=== PATIENT | female | born 1995 | race African-American/Black ===

== ENCOUNTER 2017-09-20 15:46 | Emergency (ER) | payer MEDICAID, OTHER ==
[~2017-09-20] VITALS: Ht 162.6 cm; Wt 54.4 kg
[2017-09-20 16:00] VITALS: BP 111/79
[2017-09-20] MEDS ORDERED: TETANUS-DIPTH-ACEL PERTUSSIS 0.5ML SYRG IM ONE (17:15)
[2017-09-20] MEDS ORDERED: NEOMYCIN-BACITRACIN-POLYM UNITDOSE PKG TOP OINT TOP ONE (17:15)
== END 2017-09-20 17:57 | disposition home or self-care (01) ==
LOC: ER 15:46 → EDBD 15:46 → ER 17:57
DX: T22.212A Burn of second degree of left forearm, initial encounter (principal); T22.222A Burn of second degree of left elbow, initial encounter; T21.24XA Burn of second degree of lower back, initial encounter; X12.XXXA Contact with other hot fluids, initial encounter; Y93.89 Activity, other specified; Y99.0 Civilian activity done for income or pay; Y92.511 Restaurant or cafe as the place of occurrence of the external cause
CPT/HCPCS: 90715

== ENCOUNTER 2017-12-18 16:50 | Emergency (ER) | payer MEDICAID ==
[~2017-12-18] VITALS: Ht 165.1 cm; Wt 45.4 kg
[2017-12-18] MEDS ORDERED: SODIUM CHLORIDE 0.9% 1,000 ML IVB ONE (17:24)
[2017-12-18 17:25] LABS: Urine Bacteria NONE SEEN /hpf (None Seen); Urine Blood Negative /uL (Negative); Urine Mucus FEW (None Seen); Urine Specific Gravity 1.027 (1.001-1.035); Urine WBC 27 /hpf (0 - 5)
[2017-12-18 17:29] LABS: Basophils # (auto) 0.1 uL; Basophils % (auto) 0.7 % (0.0-2.0); Eosinophils # (auto) 0.1 uL; Eosinophils % (auto) 0.9 % (0.0-7.0); Hematocrit 37.3 % (36.0-46.0); Lymphocytes # (auto) 1.6 uL; Lymphocytes % (auto) 18.8 % (10.0-50.0); Mean Corpuscular Hgb Conc. 34.9 g/dL (32.0-36.0); Mean Corpuscular Volume 91.6 fL (80.0-100.0); Monocytes # (auto) 0.6 uL; Monocytes % (auto) 6.9 % (0.0-12.0); Neutrophils # (auto) 6.4 uL; Neutrophils % (auto) 72.7 % (37.0-80.0); Nucleated Red Blood Cells % 0.1 %; Platelet Count (auto) 206 10^3/uL (140-450); Red Blood Cells 4.08 10^6/uL (4.0-5.20); Red Cell Distribution Width 14.1 % (11.8-14.3); White Blood Cell 8.8 10^3/uL (4.4-10.8)
[2017-12-18 18:10] LABS: Albumin 3.4 g/dL (3.4-5.0); Calcium 8.3 mg/dL (8.5-10.1); Potassium 4.2 mmol/L (3.5-5.1)
[2017-12-18 18:23] LABS: Bilirubin, Total 0.7 mg/dL (0.2-1.0); Total Protein 7.4 g/dL (6.4-8.2)
[2017-12-18 20:10] VITALS: BP 111/70
== END 2017-12-18 20:20 | disposition home or self-care (01) ==
LOC: ER 16:58
DX: O23.42 Unspecified infection of urinary tract in pregnancy, second trimester (principal); O21.8 Other vomiting complicating pregnancy; Z3A.14 14 weeks gestation of pregnancy
CPT/HCPCS: 36415; 76805; 80053; 81001; 84702; 85025; 94761; 96360; 99285; J7030

== ENCOUNTER 2018-05-01 18:24 | Observation (INO) | payer MEDICAID ==
[2018-05-01] MEDS ORDERED: TERBUTALINE SULFATE 1 MG/ML 1ML VIAL SC ONE (19:07)
== END 2018-05-01 20:57 | disposition home or self-care (01) | DRG 566 ==
LOC: LDRP 18:24
PROVIDERS: ADMIT Specialist; ATTEND Specialist
DX: O21.2 Late vomiting of pregnancy (principal); O26.893 Other specified pregnancy related conditions, third trimester; R10.9 Unspecified abdominal pain; Z3A.34 34 weeks gestation of pregnancy
CPT/HCPCS: 59025; 81002; 94760; G0378; J3105; 96365; 96366; 96372

== ENCOUNTER 2018-05-11 12:00 | Observation (INO) | payer MEDICAID ==
[~2018-05-11] VITALS: Ht 165.1 cm; Wt 54.4 kg
[2018-05-11] MEDS ORDERED: LACTATED RINGER'S 1,000 ML IV SCH (12:41)
[2018-05-11] MEDS ORDERED: LACTATED RINGER'S 1,000 ML IV ONE (12:41)
[2018-05-11] MEDS: TERBUTALINE SULFATE 1 MG/ML 1ML VIAL SC SCH ×2 (13:00→13:20)
[2018-05-11] MEDS ORDERED: ONDANSETRON HCL 4 MG/2 ML VIAL IV ONE (13:15)
[2018-05-11 14:43] LABS: Urine Bacteria NONE SEEN /hpf (None Seen); Urine Blood Negative /uL (Negative); Urine Mucus FEW (None Seen); Urine Specific Gravity 1.036 (1.001-1.035); Urine WBC 1 /hpf (0 - 5)
== END 2018-05-11 15:00 | disposition home or self-care (01) | DRG 566 ==
LOC: LDRP 12:00
PROVIDERS: ADMIT Specialist; ATTEND Specialist
DX: O21.1 Hyperemesis gravidarum with metabolic disturbance (principal); E86.0 Dehydration; O21.2 Late vomiting of pregnancy; O62.9 Abnormality of forces of labor, unspecified; O26.893 Other specified pregnancy related conditions, third trimester; R42 Dizziness and giddiness; Z3A.35 35 weeks gestation of pregnancy
CPT/HCPCS: 59025; 81001; 81002; 96360; 96361; 96372; G0378; J3105; 96365; 96366

== ENCOUNTER 2018-06-01 20:41 | Observation (INO) | payer MEDICAID ==
[2018-06-01] MEDS ORDERED: PREN-96 PO (23:15)
[2018-06-01] MEDS ORDERED: ACYC400T PO (23:15)
== END 2018-06-01 22:34 | disposition home or self-care (01) | DRG 566 ==
LOC: LDRP 20:41
PROVIDERS: ADMIT Specialist; ATTEND Specialist
DX: O26.893 Other specified pregnancy related conditions, third trimester (principal); N89.8 Other specified noninflammatory disorders of vagina; Z3A.38 38 weeks gestation of pregnancy
CPT/HCPCS: 59025; 81002; G0378

== ENCOUNTER 2019-03-11 18:01 | Observation (INO) | payer MEDICAID ==
[~2019-03-11 18:01] MED LIST: ACYC-43 PO; PREN-96 PO
[2019-03-11] MEDS ORDERED: NIF10C GT (19:10)
== END 2019-03-11 19:05 | disposition home or self-care (01) | DRG 563 ==
LOC: LDRP 18:01
PROVIDERS: ADMIT Obstetrics & Gynecology; ATTEND Obstetrics & Gynecology
DX: O60.02 Preterm labor without delivery, second trimester (principal); Z3A.26 26 weeks gestation of pregnancy
CPT/HCPCS: 59025; 81002; G0378

== ENCOUNTER 2019-03-17 09:30 | Observation (INO) | payer MEDICAID ==
[~2019-03-17 09:30] MED LIST changes: -ACYC-43 PO; +NIF10C GT
== END 2019-03-17 10:20 | disposition home or self-care (01) | DRG 563 ==
LOC: LDRP 09:30
PROVIDERS: ADMIT Obstetrics & Gynecology; ATTEND Obstetrics & Gynecology
DX: O60.02 Preterm labor without delivery, second trimester (principal); Z3A.27 27 weeks gestation of pregnancy
CPT/HCPCS: 59025; 81002; G0378

== ENCOUNTER 2019-04-21 10:30 | Observation (INO) | payer MEDICAID | END 2019-04-21 11:15 | disposition home or self-care (01) | DRG 563 | LOC: LDRP 10:30 | PROVIDERS: ADMIT Specialist; ATTEND Specialist | DX: O60.03 Preterm labor without delivery, third trimester (principal); Z3A.32 32 weeks gestation of pregnancy | CPT/HCPCS: 59025; 81002; G0378 ==

== ENCOUNTER 2019-04-28 08:15 | Observation (INO) | payer MEDICAID | END 2019-04-28 08:55 | disposition home or self-care (01) | DRG 563 | LOC: LDRP 08:15 | PROVIDERS: ADMIT Obstetrics & Gynecology; ATTEND Obstetrics & Gynecology | DX: O60.03 Preterm labor without delivery, third trimester (principal); Z3A.33 33 weeks gestation of pregnancy | CPT/HCPCS: 59025; G0378 ==

== ENCOUNTER 2019-05-05 08:20 | Observation (INO) | payer MEDICAID | END 2019-05-05 12:00 | disposition home or self-care (01) | DRG 563 | LOC: LDRP 08:20 | PROVIDERS: ADMIT Specialist; ATTEND Specialist | DX: O60.03 Preterm labor without delivery, third trimester (principal); Z3A.34 34 weeks gestation of pregnancy | CPT/HCPCS: 59025; 81002; 96365; G0378 ==

== ENCOUNTER 2019-05-12 08:58 | Observation (INO) | payer MEDICAID ==
[2019-05-12] MEDS: TERBUTALINE SULFATE 1 MG/ML 1ML VIAL SC ONE (09:48)
--- NOTE | 2019-05-12 09:48 | NUR ---
TERB MEDICATION ADMIN 1MG SUBQ. NOTIFIED.
[2019-05-12] MEDS ORDERED: BETAMETHASONE ACET (6MG/ML) 5ML VIAL IM SCH (10:00)
== END 2019-05-12 11:45 | disposition home or self-care (01) | DRG 566 ==
LOC: LDRP 08:58
PROVIDERS: ADMIT Obstetrics & Gynecology; ATTEND Obstetrics & Gynecology
DX: O21.2 Late vomiting of pregnancy (principal); O26.893 Other specified pregnancy related conditions, third trimester; M54.9 Dorsalgia, unspecified; N89.8 Other specified noninflammatory disorders of vagina; Z3A.35 35 weeks gestation of pregnancy
CPT/HCPCS: 59025; 81002; 96372; G0378; J0702; J3105

== ENCOUNTER 2019-05-13 16:22 | Observation (INO) | payer MEDICAID ==
[~2019-05-13] VITALS: Ht 1 cm; Wt 0.5 kg
[2019-05-13] MEDS ORDERED: BETAMETHASONE ACET (6MG/ML) 5ML VIAL IM ONE (16:30)
[2019-05-13] MEDS ORDERED: TERBUTALINE SULFATE 1 MG/ML 1ML VIAL SC ONE (17:35)
== END 2019-05-13 17:55 | disposition home or self-care (01) | DRG 563 ==
LOC: LDRP 16:22
PROVIDERS: ADMIT Obstetrics & Gynecology; ATTEND Obstetrics & Gynecology
DX: O60.00 Preterm labor without delivery, unspecified trimester (principal); Z3A.00 Weeks of gestation of pregnancy not specified
CPT/HCPCS: 59025; 81002; 96372; G0378; J0702

== ENCOUNTER 2019-05-19 08:55 | Observation (INO) | payer MEDICAID | END 2019-05-19 09:42 | disposition home or self-care (01) | DRG 563 | LOC: LDRP 08:55 | PROVIDERS: ADMIT Obstetrics & Gynecology; ATTEND Obstetrics & Gynecology | DX: O60.03 Preterm labor without delivery, third trimester (principal); Z3A.36 36 weeks gestation of pregnancy | CPT/HCPCS: 59025; 81002; G0378 ==

== ENCOUNTER 2019-05-31 20:43 | Observation (INO) | payer MEDICAID | END 2019-05-31 21:57 | disposition home or self-care (01) | DRG 566 | LOC: LDRP 20:43 | PROVIDERS: ADMIT Obstetrics & Gynecology; ATTEND Obstetrics & Gynecology | DX: O26.893 Other specified pregnancy related conditions, third trimester (principal); R10.2 Pelvic and perineal pain; Z3A.37 37 weeks gestation of pregnancy | CPT/HCPCS: 59025; 81002; G0378 ==

== ENCOUNTER 2019-06-08 20:08 | Observation (INO) | payer MEDICAID ==
[2019-06-08] MEDS ORDERED: ACETAMINOPHEN/CODEINE#3 (300/30mg) TAB PO ONE (20:45)
== END 2019-06-08 21:18 | disposition left against medical advice (07) | DRG 566 ==
LOC: LDRP 20:08
PROVIDERS: ADMIT Obstetrics & Gynecology; ATTEND Obstetrics & Gynecology
DX: O99.89 Other specified diseases and conditions complicating pregnancy, childbirth and the puerperium (principal); M54.5 Low back pain; Z3A.38 38 weeks gestation of pregnancy
CPT/HCPCS: 59025; 81002; G0378

== ENCOUNTER 2020-03-03 16:36 | Emergency (ER) | payer MEDICAID ==
[~2020-03-03] VITALS: Ht 170.2 cm; Wt 59.0 kg
[2020-03-03] MEDS ORDERED: ACETAMINOPHEN 325 MG TAB PO ONE (16:45)
[2020-03-03 17:00] VITALS: BP 110/62
== END 2020-03-03 20:34 | disposition home or self-care (01) ==
LOC: EDBD 16:36 → ER 16:36
DX: O9A.213 Injury, poisoning and certain other consequences of external causes complicating pregnancy, third trimester (principal); O26.893 Other specified pregnancy related conditions, third trimester; M54.5 Low back pain; M79.604 Pain in right leg; Z79.899 Other long term (current) drug therapy; Z3A.29 29 weeks gestation of pregnancy
CPT/HCPCS: 76805